=== PATIENT | female | born 1995 | race Caucasian/White ===

== ENCOUNTER → 2017-11-03 | Outpatient (CLI) | payer OTHER ==
--- NOTE | 2017-11-03 10:23 | RADIOLOGY IMAGING REPORT ---
FACILITY: [facility] - [place] PATIENT NAME: Danna High : 1995 MR: [id number] V: [id number] EXAM DATE: ORDERING PHYSICIAN: ORLY LANDRY TECHNOLOGIST: Location: [facility] [place] Patient: Danna High : 1995 Visit/Account:[id number] Date of Sevice: 11/03/2017 EXAMINATION: CT head without IV contrast HISTORY: Headache. Right-sided orbital pain. COMPARISON: None. TECHNIQUE: Contiguous axial images were obtained from the skull base to the vertex without intraven ous contrast. Sagittal and coronal reformatted images are also submitted. One of the following dose optimization techniques was utilized in the performance of this exam: Autom ated exposure control; adjustment of the mA and/or kV according to the patient's size; or use of an i terative reconstruction technique. Specific details can be referenced in the facility's radiology C T exam operational policy. FINDINGS: Brain volume: Normal. Ventricles: Normal. Acute ischemic changes: None. Hemorrhage: No acute intracranial hemorrhage. Masses/edema: None. Kenny-white: Negative. White matter: Normal. Vessels: Negative. Extra-axial: Negative. Calvarium/scalp: Negative. Skull base/visualized face: Negative. Visualized sinuses/orbits: There is complete opacification of the right frontal sinus with mild sekou osteal thickening of the thapa. The right anterior ethmoid air cells are nearly completely opacified , with moderate concentric mucosal thickening partly visualized in the right maxillary sinus. Visualized upper neck: The adenoids are mildly prominent, likely inflammatory at this age. IMPRESSION: 1. No intracranial mass lesion or hemorrhage. No CT evidence of acute infarct. 2. Partial right ostiomeatal unit obstructive pattern of the paranasal sinuses. This could be due t o acute or chronic sinusitis. Report Dictated By: Jazlyn Lopez MD at 11/03/2017 10:17 AM Report E-Signed By: Jazlyn Lopez MD at 11/03/2017 10:20 AM WSN:[id number]
== END ==
LOC: CT 09:29
PROVIDERS: ATTEND Nurse Practitioner Family
DX: J32.8 Other chronic sinusitis (principal)
CPT/HCPCS: 70450